=== PATIENT | female | born 1945 | race Caucasian/White ===

== ENCOUNTER 2024-10-14 10:47 | Emergency (ER) | payer MEDICARE, SELFPAY ==
[2024-10-14 10:47] VITALS: BP 166/90; PULSE 104; RESP 18; TEMP 36.9; O2SAT 95; BMI 25.0
--- NOTE | 2024-10-14 10:47 | PC.NURSE ---
DR MCKEON AT BEDSIDE
--- NOTE | 2024-10-14 10:50 | XR_ITS ---
FINAL REPORT CLINICAL HISTORY: AMS, stroke alert FINDINGS: No acute pulmonary opacity is present. There is no evidence of effusion or pneumothorax. Mediastinum is unremarkable. Heart size is normal. IMPRESSION: No acute abnormality. Reviewed, Interpreted and Dictated by Pierre Gould MD Transcribed by Meryl Ochoa Authenticated and [facility]
--- NOTE | 2024-10-14 10:51 | CT_ITS ---
FINAL REPORT CLINICAL HISTORY: stroke protocl, chronic Rdeficits, new speech/gaze FINDINGS: CTA HEAD TECHNIQUE: Thin section axial CT with contrast with 3D MIP reconstruction The anterior circulation is normal. 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 The right posterior communicating artery is widely patent. The bilateral rubber gasket inspector trimmer are patent. IMPRESSION: No evidence of acute large vessel occlusion. 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 This study was performed using automated techniques to achieve radiation exposure as low as reasonably achievable Reviewed, Interpreted and Dictated by Pierre Gould MD Transcribed by Meryl Ochoa Authenticated and . [facility]
--- NOTE | 2024-10-14 10:51 | CT_ITS ---
FINAL REPORT CLINICAL HISTORY: stroke protocl, chronic Rdeficits, new speech/gaze FINDINGS: CT NECK ANGIO, WITHOUT AND WITH CONTRAST TECHNIQUE: Thin section axial CT with contrast with multiplanar 3D MIP reconstruction. This study was performed with techniques to keep radiation doses as low as reasonably achievable, (ALARA). Individualized dose reduction techniques using automated exposure control or adjustment of mA and/or kV according to the patient's size were employed. NASCET criteria and technique was utilized during interpretation. Aortic arch: There is approximately 30% stenosis of the left subclavian artery. Innominate and left common carotid are widely patent. Right carotid: Smooth plaque disease at the carotid bifurcation causing 40% stenosis of the distal CCA/proximal ICA. Left carotid: No significant stenosis is seen of the cervical common or internal carotid artery. Vertebrals: The vertebral arteries are codominant. No significant stenosis is present. 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 This study was performed using automated techniques to achieve radiation exposure as low as reasonably Reviewed, Interpreted and Dictated by Pierre Gould MD Transcribed by Meryl Ochoa Authenticated and [facility]
--- NOTE | 2024-10-14 10:51 | CT_ITS ---
FINAL REPORT TECHNIQUE: Noncontrast exam This study was performed with techniques to keep radiation doses as low as reasonably achievable, (ALARA). Individualized dose reduction techniques using automated exposure control or adjustment of mA and/or kV according to the patient''s size were employed. CLINICAL HISTORY: stroke protocol , chronic Rdeficits, new speech/gaze FINDINGS: There are advanced chronic microvascular changes, left greater than right. There is a large old lacunar infarct in the left basal ganglia. Ventricles are normal. There is a hypodensity within the carole, larger on the right, favor chronic infarct although MRI would better characterize. There is no hemorrhage or obvious edema. No mass effect is seen. Bone windows show no evidence of fracture. IMPRESSION: Chronic findings without obvious acute infarct. Recommend MRI follow-up. Reviewed, Interpreted and Dictated by Pierre Gould MD Transcribed by Meryl Ochoa Authenticated and [facility]
--- NOTE | 2024-10-14 10:56 | PC.NURSE ---
RT & lab aware of VBG order and blood sent to lab
--- NOTE | 2024-10-14 10:57 | PC.NURSE ---
@ 1049 EMS giving report, Dr. Ayala presented to bedside. FS 128 @ 1054 paged stroke alert. Blood collected and placed in blue bag and sent to lab. @ 2453 Radiology at bedside and taking pt to CT scan
--- NOTE | 2024-10-14 10:59 | PC.NURSE ---
Patient daughter arrived to bedside. Spoke with her. States her mom woke up approx 1 am with vomiting and diarrhea. States she got her cleaned up and gave her a zofran at that time. States he mom was at her baseline at that time and went back to sleep. Upon waking her up at approx 9-930 this morning she stated that her mom had increased slurred speech was seeing double, and that her eyes were crossed. Past history of a stroke 1 year ago with right sided deficits already.
[2024-10-14 11:01] LABS: Lactate Venous 2.4 mmol/L (0.4-2.0); VBG Base Excess -2.7 mmol/L (-2.4-2.3); VBG Oxygen Saturation 91.4 % (50-70); VBG PCO2 36.2 mmol/L (35-51); VBG PO2 57.9 mmol/L (28-40); VBG Total CO2 23.1 mmol/L (23-27)
[2024-10-14 11:09] LABS: Basophils % 0.3 % (0.1-2.0); Hematocrit 42.1 % (37.0-47.0); Hemoglobin 13.8 g/dL (12.2-16.2); Lymphocytes # 0.8 K/mm3 (0.7-4.5); Lymphocytes % 5.6 % (10-50); Mean Corpuscular HGB Conc 32.8 g/dL (31.8-35.4); Mean Corpuscular Hemoglobin 27.6 pg (27.0-31.2); Mean Corpuscular Volume 84.2 fl (81-99); Mean Platelet Volume 10.2 fl (7.4-10.4); Monocytes # 0.4 K/mm3 (0.1-1.0); Monocytes % 3.1 % (1.7-9.3); Neutrophils # 12.4 K/mm3 (1.8-7.8); Neutrophils % 90.6 % (37.0-80.0); Platelet Count 365 K/mm3 (142-424); Red Cell Distribution Width 16.1 % (11.5-17.5); White Blood Count 13.7 K/mm3 (4.8-10.8)
[2024-10-14 11:17] LABS: MANUAL DIFFERENTIAL MANUAL DIFFERENTIAL (MANUAL DIFF)
[2024-10-14] MEDS: SODIUM CHLORIDE 0.9% 10ML SYR (RAD ONLY) 10 ML IV (11:24)
[2024-10-14] MEDS: 0.9 % SODIUM CHLORIDE 50 ML VIAL IV (11:24)
[2024-10-14] MEDS: IOPAMIDOL-370 (76%);100ML BOTTLE 80 ML IV (11:24)
[2024-10-14] MEDS: ONDANSETRON 4MG/2ML VIAL 4 MG IV ×2 (11:26→12:23)
[2024-10-14] MEDS: LACTATED RINGERS 1000ML 1,000 ML 999 ML IV (11:26)
[2024-10-14 11:29] LABS: INR 0.87 (0.9-1.1); Prothrombin Time 9.7 seconds (9.2-12.1)
[2024-10-14 11:37] LABS: T4 (Thyroxine) 13.6 ug/dl (5.53-11.0)
[2024-10-14 11:39] LABS: Coronavirus 19, PCR Not Detected (NotDetected); Influenza A, PCR Not Detected (NotDetected); Influenza B, PCR Not Detected (NotDetected)
--- NOTE | 2024-10-14 11:40 | PC.NURSE ---
dr villalta speaking with Chrysallis, Splother shared
--- NOTE | 2024-10-14 11:48 | PC.NURSE ---
dr villalta at bedside to update pt and family
[2024-10-14 11:51] LABS: Alanine Aminotransferase 36 U/L (12-78); Albumin Level 4.4 g/dl (3.5-5.0); Albumin/Globulin Ratio 1.3 (1.1-1.8); Alkaline Phosphatase 142 U/L (38-126); Anion Gap 11.4 mEq/L (5-15); Aspartate Amino Transferase 36 U/L (14-36); Bilirubin,Total 0.7 mg/dl (0.2-1.3); Blood Urea Nitrogen 22 mg/dl (7-17); Calcium 9.3 mg/dl (8.4-10.2); Carbon Dioxide 26 mmol/L (22.0-30.0); Chloride 100 mmol/L (98-107); Creatinine Clearance Estimated 47 mL/min (50-200); Estimated Glomerular Filt Rate 69 ml/min (>60); GFR (African American) 83 ML/MIN (>60); Globulin 3.3 g/dL (1.3-3.2); Glucose 133 mg/dl (74-100); Lipase 22 U/L (23-300); Magnesium 1.8 mg/dl (1.6-2.3); Phosphorous 3.2 mg/dl (2.5-4.5); Potassium 4.4 mmoL/L (3.5-5.1); Sodium 133 mmol/L (136-145); Thyroid Stimulating Hormone 1.75 uIU/mL (0.465-4.68); Total Protein,Serum 7.7 g/dl (6.3-8.2)
--- NOTE | 2024-10-14 11:51 | ECG_ITS ---
APPROVED REPORT Exam: Resting ECG HR:111 bpm ECG Measurements Heart Rate 111 AXES AK 171 P 58 QRSd 158 QRS 100 QT 375 T -5 QTc 441 Conclusion SINUS TACHYCARDIA RIGHT BUNDLE BRANCH BLOCK [120+ ms QRS DURATION, UPRIGHT V1, 40+ ms S IN I/aVL/V4/V5/V6] ABNORMAL ECG Artifact significantly limits interpretation, no obvious ischemic changes Electronically signed by : MARIAH CORTEZ, 10/15/2024 06:09:55
--- NOTE | 2024-10-14 11:51 | HMH.EDGENADL ---
Discharge Plan Disposition Patient Disposition: Xfer Short-Term Hosp Referrals Follow up/Referrals: Provider,Referral, MD [Primary Care Provider] - See instructions Clinical Impressions Clinical Impression: Cerebrovascular accident, Nausea vomiting and diarrhea Stand Alone Forms Stand Alone Forms: Transfer Record - ED Print Language Print Language: Occitan Discharge ED Provider: Maribell Ayala General Adult HPI General Chief complaint: Neuro Symptoms/Deficit Stated complaint: Stroke alert Time Seen by Provider: 10/14/24 10:50 Mode of Arrival: EMS Source of Information: Patient Limitations: No Limitations Description of Symptoms (Recalled from ER Triage Doc. by RN): Per EMS patient with right sided paralysis from previous stroke. States daughter told them that approx 2.5-3 hours ago the patient began to have sluggish speech and changes in eye pattern. Patient currently alert with no complaints. History of Present Illness HPI narrative: This patient is an 79-year-old female with a history of prior CVA with residual right-sided hemiaplasia according to granddaughter presenting to the emergency department for evaluation with concern for new strokelike symptoms. According the patient's granddaughter, the patient was up all night with nausea, vomiting, and diarrhea from 1 AM to 6 AM. She went back to sleep around 8 AM completely in her neurologic baseline, but she woke up around 930/10 with new diplopia, crossed eyes, and speech difficulty. She also seems more confused than usual. Her granddaughter states that this is not her neurologic baseline with her prior stroke. Patient is not on any anticoagulation except aspirin which she has not had today. She was up all night with nausea, vomiting, and diarrhea but complains of no abdominal pain. No other issues noted aside from the new double vision and speech difficulty. Related Data Allergies Allergy/AdvReac Type Severity Reaction Status Date / Time No Known Allergies Allergy Verified 10/14/24 11:05 [facility] Disclaimer: The information contained in this section may have been updated after the patient was seen, as this information can be updated by other users. Social History Smoking Status: Unknown if ever smoked alcohol intake: never current occupational status: retired Travel in the last 8 weeks: None ROS Obtained: Yes All systems reviewed & no additional complaints except as documented Physical Exam General General appearance: alert Head Head exam: atraumatic and normocephalic Eye Eye exam: Present normal appearance, PERRL and EOMI ENT ENT exam: Present normal exam, normal oropharynx, mucous membranes moist and normal external ear exam Neck Neck exam: Present normal inspection, full ROM and trachea midline; Absent tenderness Chest Chest inspection: Present normal inspection and symmetric chest wall rise; Absent tenderness Respiratory Respiratory exam: Present normal lung sounds bilaterally; Absent respiratory distress, wheezes, stridor or accessory muscle use Cardiovascular Cardiovascular exam: Present regular rate and normal rhythm Abdominal Exam Abdominal exam: Present soft; Absent distention, tenderness or guarding Extremities Exam Extremities exam: Present normal inspection, full ROM and normal capillary refill; Absent tenderness or edema Back Exam Back exam: Present normal inspection and full ROM; Absent tenderness Neurological Exam Neurological exam: Present alert Expanded Neurological Exam Comment: Chronic right-sided hemiplegia. No effort against gravity right upper extremity, some effort against gravity of right lower extremity. Extraocular movement dysfunction, diplopia. Dysarthria. Does not answer month or age correctly. NIH stroke scale of 12. Psychiatric Psychiatric exam: Present normal affect and normal mood Skin Skin exam: Present warm and dry Medical Decision Making Medical Records Medical records reviewed: Yes I reviewed the patient's medical records. Screening: Per USPSTF and CDC recommendations, given the prevalence of disease in our region, it is our hospital?s policy to screen for HIV and viral Hepatitis for all patients aged 18 and over and those with ongoing risk factors. [place]irt Inquiry Pt receiving controlled substance: No Vital Signs: 10/14/24 10:47 10/14/24 12:28 10/14/24 12:28 Temperature 98.4 F 98.4 F 98.4 F Temperature Source Oral Oral Pulse Rate 103 H 103 H Pulse Rate [Radial] 104 H Respiratory Rate 18 16 16 Blood Pressure 148/72 H 148/72 H Blood Pressure [Left Arm] 166/90 H Blood Pressure Mean [Left Arm] 115 Blood Pressure Source Automatic Cuff Blood Pressure Source [Left Arm] Automatic Cuff Blood Pressure Position Sitting Blood Pressure Position [Left Arm] Supine 02 Sat by Pulse Oximetry 95 Oxygen Delivery Method Room Air Room Air Lab Data Lab results reviewed: Yes I reviewed the patient's lab results. Lab Results 10/14/24 10:50: WBC 13.7 H, RBC 5.00, Hgb 13.8, Hct 42.1, MCV 84.2, MCH 27.6, MCHC 32.8, RDW 16.1, Plt Count 365, MPV 10.2, Neut % (Auto) 90.6 H, Lymph % (Auto) 5.6 L, [place] % (Auto) 3.1, Eos % (Auto) 0.0 L, Baso % (Auto) 0.3, Neut # (Auto) 12.4 H, Lymph # (Auto) 0.8, [place] # (Auto) 0.4, Eos # (Auto) 0.0, Baso # (Auto) 0.0, Total Counted 100, Neutrophils % (Manual) 83 H, Band Neutrophils % 6.0, Lymphocytes % (Manual) 8 L, Monocytes % (Manual) 3, Platelet Estimate Normal, RBC Morphology Not Reportable, Hypochromasia 1+, Poikilocytosis 1+, PT 9.7, INR 0.87 L, VBG pH 7.40, VBG pCO2 36.2, VBG pO2 57.9 H, VBG HCO3 22.0 L, VBG Total CO2 23.1, VBG O2 Saturation 91.4 H, VBG Base Excess -2.7 L, VBG Lactic Acid 2.4 H, Sodium 133 L, Potassium 4.4, Chloride 100, Carbon Dioxide 26, Anion Gap 11.4, BUN 22 H, Creatinine 0.80, Estimated Creat Clear 47, Estimated GFR 69, Est GFR ( Amer) 83, Glucose 133 H, Calcium 9.3, Phosphorus 3.2, Magnesium 1.8, Total Bilirubin 0.7, AST 36, ALT 36, Alkaline Phosphatase 142 H, Total Protein 7.7, Albumin 4.4, Globulin 3.3 H, Albumin/Globulin Ratio 1.3, Lipase 22 L, TSH 1.75, Thyroxine (T4) 13.6 H 10/14/24 11:33: Troponin I < 0.01, SARS-CoV-2 (PCR) Not detected, Influenza A Untype (PCR) Not detected, Influenza Type B (PCR) Not detected 10/14/24 12:10: Urine Color Yellow, Urine Appearance Clear, Urine pH 5.5, Ur Specific [place] 1.010, Urine Protein Negative, Urine Glucose (UA) Negative, Urine Ketones Negative, Urine Blood Trace-i, Urine Nitrate Negative, Urine Bilirubin Negative, Urine Urobilinogen 0.2, Ur Leukocyte Esterase Negative, Urine RBC Occasional, Urine WBC None, Ur Squamous Epith Cells None, Urine Bacteria None 10/14/24 10:50 10/14/24 10:50 Orders (Tests/Meds): ED MEDICATIONS Discontinued Medications Generic Name Dose Route Start Last Admin Trade Name Freq PRN Reason Stop Dose Admin Lactated Ringer's 1,000 mls @ 999 mls/hr 10/14/24 11:12 10/14/24 11:26 Lactated Ringer's 1000 Ml Bag IV 10/14/24 12:12 999 mls/hr .Q1H1M ONE Administration Iopamidol 80 ml 10/14/24 11:23 10/14/24 11:24 Iopamidol-370 (76%);100ml Bottle IV 10/14/24 11:24 80 ml ONCE ONE Administration Ondansetron HCl 4 mg 10/14/24 11:08 10/14/24 11:26 Ondansetron 4mg/2ml Vial IV 10/14/24 11:09 4 mg ONCE ONE Administration Ondansetron HCl 4 mg 10/14/24 11:53 10/14/24 12:23 Ondansetron 4mg/2ml Vial IV 10/14/24 11:54 4 mg ONCE ONE Administration Sodium Chloride 10 ml 10/14/24 11:23 10/14/24 11:24 Sodium Chloride 0.9% 10ml Syr (Rad Only) IV 10/14/24 11:24 10 ml ONCE ONE Administration Sodium Chloride 50 ml 10/14/24 11:23 10/14/24 11:24 0.9 % Sodium Chloride 50 Ml Vial IV 10/14/24 11:24 50 ml ONCE ONE Administration Tenecteplase 17 mg 10/14/24 11:47 10/14/24 12:00 Tenecteplase 50mg Vial IV 10/14/24 11:48 17 mg ONCE ONE Administration ORDERS Category Date Time Status CT angio head Stat Cat Scan 10/14/24 10:[address] angio neck Stat Cat Scan 10/14/24 10:[address] head/brain wo con Stat Cat Scan 10/14/24 10:51 Completed CXR --portable [XR chest portable] Stat Exams 10/14/24 10:50 Completed Complete Blood Count Auto Diff Stat Lab 10/14/24 10:50 Completed Comprehensive Metabolic Panel Stat Lab 10/14/24 10:50 Completed Lipase Stat Lab 10/14/24 10:50 Completed MAG [Magnesium] Stat Lab 10/14/24 10:50 Completed Phosphorous Stat Lab 10/14/24 10:50 Completed Prothrombin Time INR Stat Lab 10/14/24 10:50 Completed Rapid PCR Covid and Flu A/B Stat Lab 10/14/24 11:33 Completed T4 (Thyroxine) Stat Lab 10/14/24 10:50 Completed TSH [Thyroid Stimulating Hormone] Stat Lab 10/14/24 10:50 Completed Trop I [Troponin I] Stat Lab 10/14/24 11:33 Completed UA [Urinalysis and Microscopic] Stat Lab 10/14/24 12:10 Completed Urine Culture Stat Micro 10/14/24 12:10 Received VBG [Venous Blood Gas] Stat RT 10/14/24 10:50 Completed ECG Data Tracing #1: I reviewed this ECG and interpreted as documented below: Sinus tachycardia with a ventricular to 111 bpm. Right bundle branch block. Motion artifact degraded study. No acute STEMI. ECG initial impression date: 10/14/24 ECG initial impression time: 11:53 Medical Decision Narrative: In summary, this patient is a 79-year-old female presenting to the Emergency Department for evaluation of new onset diplopia and slurred speech with history of prior right-sided CVA. She also was up all night with nausea, vomiting, diarrhea. Differential diagnoses considered include but are not limited to CVA, recrudescence of old stroke, dehydration, electrolyte derangements, urinary tract infection, other stroke mimic. Ruling out the most morbid conditions drove assessment. Patient arrives by EMS who helps provide history. They noted she was stable en route. Patient states that she is having new onset double vision. History obtained from granddaughter as well who stated that she has prior right hemiplegia from stroke in September 2023, for which she was flown from [place] to , but the diplopia, crossed eyes, and speech difficulties as well as her increasing confusion are new. Workup included lab evaluation to evaluate for infectious and metabolic causes. LKW effectively 8am when the patient was seen normal before lying down to take a nap. NIHSS 12. She arrives within the tNK/tPA window. Patient was taken emergently for CT head and CT angiograms of the head and neck as a stroke alert. I independently interpreted CT scans prior to the radiologist read and noted no obvious intracranial hemorrhage. Please see their read for final interpretation. Labs obtained demonstrate mild leukocytosis, which is nonspecific and could be leukemoid in the setting of vomiting. VBG demonstrates mildly elevated lactic acid. She is mildly hyponatremic with a sodium of 133. Lipase normal. Urine not concerning for infection. Viral swab negative. Patient arrives within TNK window. She has no absolute contraindications, but she is over 78 with history of prior stroke. These are things to consider prior to administering TNK, so risk versus benefit was explained to the family. I also felt it was beneficial to obtain recommendations from stroke neurology prior to administering, especially since this could be recrudescence of prior stroke with her acute GI illness. I called and spoke with [facility] and power shared through [employer] lana. They did recommend going ahead with TNK after interactive discussion with Dr. Garcia as long as family is agreeable after explanation of risk versus benefit explained. This was explained, and they are agreeable. They understand risk of catastrophic brain bleed and other bleeding. TNK was slightly delayed in administration, as I was waiting for decision from family and also waiting to hear from stroke neurology at . Ultimately after TNK administration, she was accepted to for stroke evaluation. EMS transport was arranged and she was transported in stable condition. Critical Care Critical Care Time Critical Care Time: Yes Attestation: On 10/14/24, the high probability of a clinically significant, sudden or life threatening deterioration of the following system(s) required my full and direct attention, intervention and personal management. The time I documented below is in addition to time spent performing reported procedures but includes the following listed in this critical care notation. Total Time Total Critical Care Time: 45
[2024-10-14] MEDS: TENECTEPLASE 50MG VIAL 17 MG IV (12:00)
[2024-10-14 12:17] LABS: Microscopic, Urine URINE MICROSCOPIC (MICROSCOPIC)
[2024-10-14 12:28] VITALS: BP 148/72; PULSE 103; RESP 16; TEMP 36.9; O2SAT 93
[2024-10-14 12:29] LABS: Appearance,Urine CLEAR (Clear); Bilirubin,Urine Negative (Negative); Blood, Urine TRACE-I (Negative); Color,Urine YELLOW (Yellow); Glucose,Urine (UA) Negative (Negative); Ketones,Urine Negative (Negative); Leukocyte Esterase,Urine Negative (Negative); Nitrate,Urine Negative (Negative); PH,Urine 5.5 (5.0-8.5); Protein,Urine Negative (Negative); Urobilinogen,Urine 0.2 EU/dl (0.2)
[2024-10-14 12:41] LABS: Troponin I < 0.01 ng/ml (0.00-0.034)
[2024-10-14 12:42] LABS: RBC,Urine Occasional #/hpf (0-3)
[2024-10-14 12:47] LABS: Lymphocytes % 8 % (10-50); Monocytes % 3 % (2-9); Neutrophils % 83 % (42-76); Total Cells Counted 100
[2024-10-14 12:48] LABS: Hypochromasia 1+; Platelet Estimate Normal; Poikilocytosis 1+
[2024-10-14 15:01] LABS: Reflex Lactic Add Lactic Reflex
== END 2024-10-14 12:34 | disposition short-term general hospital (02) ==
PROVIDERS: Emergency Provider Emergency Medicine
DX: I63.9 Cerebral infarction, unspecified (principal); R47.81 Slurred speech; H53.2 Diplopia; R11.2 Nausea with vomiting, unspecified; R19.7 Diarrhea, unspecified; H50.9 Unspecified strabismus; I69.351 Hemiplegia and hemiparesis following cerebral infarction affecting right dominant side
CPT/HCPCS: 70450; 70496; 70498; 71045; 80053; 81001; 82803; 83690; 83735; 84100; 84436; 84443; 84484; 85007; 85025; 85027; 85610; 87086; 87636; 93005; 96361; 96374; 96375; 99291; J2405; J3101; J7120; Q9967

== ENCOUNTER 2024-12-08 09:48 | Outpatient (CLI) | payer MEDICARE, SELFPAY ==
[2024-12-19 10:10] LABS: Miscellaneous Test SCANNED IMAGE
== END 2024-12-08 23:59 | disposition home or self-care (01) ==
LOC: LAB 09:50
PROVIDERS: PCP Nurse Practitioner Family; Visit Provider Family Medicine
DX: I63.9 Cerebral infarction, unspecified (principal)
CPT/HCPCS: 36415; 85280; 85461; 85730